=== PATIENT | male | born 1995 | race Caucasian/White ===

== ENCOUNTER 2017-04-30 16:16 | Emergency (ER) | payer OTHER ==
[~2017-04-30 16:16] MED LIST: ADDERALL PO; AMOXICILLIN PO; BACITRACIN3.5 GM OP; BACITRACIN30 GM TOP; CIPRO PO; CLONIDINE TOP; IBUPROFEN PO; KEFLEX PO; KEFLEX500 M1 PO; LORTAB 10-5001 EACH PO; LORTAB 5/500 TA1 TA1 PO; LOTRIMIN10 ML TP; NO MEDICATIONS; PEN-VEE K PO; TOBREX5 ML OS; TYLENOL #3 PO
[2017-04-30 17:08] LABS: INFLUENZA A NEG (NEG); INFLUENZA B NEG (NEG)
== END 2017-04-30 17:46 | disposition home or self-care (01) ==
LOC: SED 16:16
PROVIDERS: Physician Assistant
DX: J20.9 Acute bronchitis, unspecified (principal); F90.9 Attention-deficit hyperactivity disorder, unspecified type; F17.200 Nicotine dependence, unspecified, uncomplicated
CPT/HCPCS: 87651; 87804; 96372; 99283; J1040

== ENCOUNTER 2017-05-06 02:20 | Emergency (ER) | payer OTHER ==
[~2017-05-06] VITALS: Ht 170.2 cm; Wt 83.9 kg
--- NOTE | ~2017-05-06 | CR63 ---
[facility]. [facility] A Service of [facility] & [facility] RADIOLOGY TEXT RESULTS PATIENT: ABE AGUILAR JR LOCATION: SED : [birth year] UNIT #: [id number] AGE: [address]: Nura Adams MD SEX: M ORDER DR: [id number] [place] [id number] E MR#: [id number] Acc #: [id number] NAME: ABE AGUILAR JR : 1995 SEX: M STUDY DATE/TIME: 05/06/2017 2:39 UNIT: SED ROOM: STUDY DESCRIPTION: CR Chest 2 View Attending Physician: Nura Adams M.D. Ordering Physician: Nura Adams M.D. Primary Care Physician: Primary Care Physician No MEDICAL IMAGING REPORT This report is preliminary unless electronic signature is present. EXAM Chest x-ray 05/06/2017 HISTORY 21-year-old male in the ED complaining of 1-week history of cough and congestion. TECHNIQUE PA and lateral upright chest series. FINDINGS Examination is negative. The lungs are expanded and clear. No visible pulmonary infiltrate, pneumothorax or pleural effusion. Heart size and pulmonary vascularity are normal. IMPRESSION Negative chest. Dictated by... Silviano Conde M.D. THIS IS AN ELECTRONICALLY VERIFIED REPORT Silviano Conde M.D. at 05/06/2017 9:58 PM RGW/tiffanie TD: 05/06/2017 13:37 JOB #: [id number] MEDICAL IMAGING REPORT Page 1 of 1
== END 2017-05-06 03:25 | disposition home or self-care (01) ==
LOC: SED 02:20
DX: J20.9 Acute bronchitis, unspecified (principal); J06.9 Acute upper respiratory infection, unspecified; F17.200 Nicotine dependence, unspecified, uncomplicated
CPT/HCPCS: 71020; 94640; 99284